=== PATIENT | female | born 1980 | race Caucasian/White ===

== ENCOUNTER 2018-02-02 14:26 | Inpatient (IN) | payer OTHER ==
[2018-02-02 17:07] VITALS: BMI 36.6
--- NOTE | 2018-02-02 18:41 | HP ---
CIWA Score - CIWA Score Nausea/Vomitin Muscle Tremors: 3 Anxiety: 3 Agitation: 2 Paroxysmal Sweats: 3 Orientation: 0-Oriented Tacttile Disturbances: 0-None Auditory Disturbances: 0-None Visual Disturbances: 0-None Headache: 0-None Present CIWA-Ar Total Score: 13 Admission ROS S - HPI Chief Complaint: "I am here for detox from drinking too much wine" History of Present Illness: 37 y/o female here for alcohol detox. This is pt's visit here but she states she had detox 2 yrs ago "[facility] at [facility]" for the same thing. Pt states she drinks wine and believes it is excessive. States she has been drinking for the last 3 days straight. Was drinking vodka in the past, stopped for beer, but now just drinks wine. Last drink was yesterday. Denies any remarkable sober period. Utox + for benzo, pt states she is prescribed ' something' for depression. Hx: juvenile rheumatoid arthritis (for which she is prescribed prednisone and motrin); gastric bypass 2000 psych hx: Depression, Anxiety Denies prior or current SI. Exam Limitations: No Limitations - Ebola screening Have you traveled outside of the country in the last 21 days: No (NN) Have you had contact with anyone from an Ebola affected area: No Have you been sick,other than usual withdrawal symptoms: No Do you have a fever: No - Review of Systems Constitutional: Loss of Appetite, Night Sweats, Unexplained wgt Loss EENT: reports: Blurred Vision (wears glasses) Respiratory: reports: No Symptoms reported Cardiac: reports: Lightheadedness, Palpitations GI: reports: No Symptoms Reported : reports: Burning (sometimes) Musculoskeletal: reports: Joint Pain (upper shoulders, legs from arthritis) Integumentary: reports: No Symptoms Reported Neuro: reports: Headache Endocrine: reports: No Symptoms Reported Hematology: reports: No Symptoms Reported Psychiatric: reports: Orientated x3, Anxious Other Systems: Reviewed and Negative Patient History - Patient Medical History Hx Anemia: No Hx Asthma: No Hx Chronic Obstructive Pulmonary Disease (COPD): No Hx Cancer: No Hx Cardiac Disorders: No Hx Congestive Heart Failure: No Hx Hypertension: No Hx Hypercholesterolemia: No Hx Pacemaker: No HX Cerebrovascular Accident: No Hx Seizures: Yes (alcohol induced, years ago) Hx Dementia: No Hx Diabetes: No Hx Gastrointestinal Disorders: No Hx Liver Disease: No Hx Genitourinary Disorders: No Hx Sexually Transmitted Disorders: No Hx Renal Disease (ESRD): No Hx Thyroid Disease: No Hx Human Immunodeficiency Virus (HIV): No (tested negative at ?last month) Hx Hepatitis C: No Hx Depression: Yes (On Paxil, risperidone) Hx Suicide Attempt: No (Denies past or current) Hx Bipolar Disorder: No Hx Schizophrenia: No - Patient Surgical History Past Surgical History: Yes Hx Neurologic Surgery: No Hx Cataract Extraction: No Hx Cardiac Surgery: No Hx Lung Surgery: No Hx Breast Surgery: No Hx Breast Biopsy: No Hx Abdominal Surgery: Yes (Gastric by pass 2000) Hx Appendectomy: No Hx Cholecystectomy: No Hx Genitourinary Surgery: No Hx Section: No Hx Orthopedic Surgery: No Hx Hysterectomy: No Anesthesia Reaction: No - PPD History Previous Implant?: No Documented Results: Negative w/o proof Implanted On Prior R Admission?: No PPD to be Administered?: Yes - Reproductive History Patient is a Female of Child Bearing Age (11 -55 yrs old): Yes Last Menstrual Period: 02/01/18 Patient : No - Smoking Cessation Smoking history: Current every day smoker Have you smoked in the past 12 months: Yes Aproximately how many cigarettes per day: 10 Initiated information on smoking cessation: Yes 'Breaking Loose' booklet given: 02/02/18 - Substance & Tx. History Hx Alcohol Use: Yes Hx Substance Use: No Substance Use Type: Alcohol Hx Substance Use Treatment: Yes - Substances Abused Alcohol Route: Oral Frequency: 1-2 times per week Amount used: one bottle of wine Age of first use: 16 Date of Last Use: 02/01/18 Family Disease History - Family Disease History Family Disease History: CA: Mother (Depression, breast CA, Fibroid, HTN, obesity ), Other: Father (Alcoholic, drug use), Mother, Sister (Depression, anxiety, htn , obesity) Admission Physical Exam BHS - Vital Signs Vital Signs: Vital Signs - 24 hr 02/02/18 17:02 Temperature 96.4 F L Pulse Rate 108 H Respiratory 18 Rate Blood Pressure 138/79 - Physical General Appearance: Yes: Mild Distress, Anxious HEENTM: Yes: Other (glasses) Respiratory: Yes: Lungs Clear, No Respiratory Distress, No Accessory Muscle Use Neck: Yes: No masses,lesions,Nodules, Trachea in good position Breast: Yes: Breast Exam Deferred Cardiology: Yes: Tachycardia, Other (no distress) Abdominal: Yes: Non Tender, Soft, Distended, Surgical Scar (healed vertical scar ) Genitourinary: Yes: Burning Back: Yes: Normal Inspection Musculoskeletal: Yes: full range of Motion, Gait Steady Extremities: Yes: Normal Capillary Refill, Normal Range of Motion Neurological: Yes: Within Normal Limits, Fully Oriented, Alert Integumentary: Yes: Normal Color Lymphatic: Yes: Within Normal Limits - Diagnostic (1) Alcohol dependence with uncomplicated intoxication Current Visit: Yes Status: Acute (2) Arthritis Current Visit: Yes Status: Acute (3) Gastric bypass status for obesity Current Visit: Yes Status: Acute (4) Depression Current Visit: Yes Status: Acute (5) Anxiety Current Visit: Yes Status: Acute Cleared for Admission [facility] - Detox or Rehab [facility] Level of Care: Medically Managed Detox Regimen/Protocol: Librium [facility] Breath Alcohol Content Breath Alcohol Content: 0 Urine Pregancy Test - Result Urine Test Results: Negative- NO Line Present Urine Drug Screen - Results Drug Screen Negative: No Urine Drug Screen Results: BZO-Benzodiazepines
[2018-02-02] MEDS ORDERED: MAG HYDROX/AL HYDROX/SIMETH 30 ML UNIT-DOSE CUP PO PRN (19:09)
[2018-02-02] MEDS ORDERED: ACETAMINOPHEN 325 MG TABLET (FP) PO PRN (19:09)
[2018-02-02] MEDS ORDERED: chlordiazePOXIDE HCL 25 MG CAPSULE PO PRN (19:09)
[2018-02-02] MEDS ORDERED: guaiFENesin/D-METHORPHAN HB 10 ML UNIT-DOSE CUPS PO PRN (19:09)
[2018-02-02] MEDS ORDERED: MAGNESIUM HYDROX 2400MG/30ML ORAL SUSPENSION 30 ML CUP PO PRN (19:09)
[2018-02-02] MEDS ORDERED: LOPERAMIDE HCL 2 MG CAPSULE PO PRN (19:09)
[2018-02-02] MEDS ORDERED: MAGNESIUM CITRATE 300 ML BOTTLE PO PRN (19:09)
[2018-02-02] MEDS ORDERED: IBUPROFEN 400 MG TABLET (FP) PO PRN (19:09)
[2018-02-02] MEDS ORDERED: MENTHOL/PHENOL 1 EACH UD MM PRN (19:09)
[2018-02-02] MEDS ORDERED: P-EPHED 60MG/TRIPROLIDI 2.5MG TABLET PO PRN (19:09)
[2018-02-02 23:28] LABS: URINE APPEARANCE CLOUDY; URINE COLOR AMBER; URINE GLUCOSE (UA) NEGATIVE (NEGATIVE); URINE KETONE TRACE (NEGATIVE); URINE LEUK ESTERASE NEGATIVE (NEGATIVE); URINE NITRITE NEGATIVE (NEGATIVE)
[2018-02-02 23:34] LABS: URINE PROTEIN 2+ (NEGATIVE)
[2018-02-02 23:37] LABS: CALCIUM OXALATE CRYSTALS FEW /hpf (NONE SEEN); EPI CELLS MODERATE /HPF (FEW); URINE BACTERIA RARE /hpf (NONE SEEN); URINE HYALINE CAST 6 /lpf; URINE MUCUS MANY
[2018-02-03] MEDS: chlordiazePOXIDE HCL 25 MG CAPSULE PO SCH ×5 (01:06→23:01)
[2018-02-03] MEDS: THIAMINE HCL 100 MG TABLET (FP) PO SCH ×2 (01:12→23:01)
[2018-02-03] MEDS: NICOTINE 21 MG/24 HOURS TOPICAL PATCH TD SCH ×2 (01:13→10:10)
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
[2018-02-03] MEDS: PRENATAL VITAMINS W/ FOLIC ACID TABLET (FP) PO SCH (10:10)
[2018-02-03 10:19] LABS: HEMATOCRIT 26.2 % (32.4-45.2); HEMOGLOBIN 7.8 GM/dL (10.7-15.3); MCH 20.2 pg (25.7-33.7); MCHC 29.8 g/dl (32.0-36.0); MEAN CELL VOLUME 67.7 fl (80-96); MEAN PLT VOLUME 8.6 fl (7.5-11.1); PLATELET COUNT 192 K/MM3 (134-434); RBC 3.87 M/mm3 (3.60-5.2); WHITE BLOOD COUNT 6.5 K/mm3 (4.0-10.0)
[2018-02-03 10:40] LABS: ALBUMIN 2.8 g/dl (3.4-5.0); ALK PHOS 58 U/L (45-117); ANION GAP 7 MMOL/L (8-16); BILIRUBIN,TOTAL 0.3 mg/dL (0.2-1); BLOOD UREA NITROGEN 15 mg/dL (7-18); CHLORIDE 111 mmol/L (98-107); CO2 26 mmol/L (21-32); CREATININE 0.7 mg/dL (0.55-1.3); GLUCOSE,RANDOM 74 mg/dL (74-106); POTASSIUM 4.1 mmol/L (3.5-5.1); SGOT/AST 17 U/L (15-37); SGPT/ALT 13 U/L (13-61); SODIUM 143 mmol/L (136-145); TOT PROT 5.4 g/dl (6.4-8.2)
[2018-02-03] MEDS ORDERED: PARoxetine HCL 30 MG TABLET PO SCH (10:45)
[2018-02-03] MEDS: risperiDONE 2 MG TABLET PO SCH (11:00)
[2018-02-03] MEDS: predniSONE 10 MG TABLET (UD) PO SCH (11:00)
[2018-02-03] MEDS: NICOTINE POLACRILEX 2 MG GUM BC PRN ×2 (14:22→18:40)
--- NOTE | 2018-02-03 17:08 | EKG ---
Test Reason : Blood Pressure : / mmHG Vent. Rate : 052 BPM Atrial Rate : 052 BPM P-R Int : 168 ms QRS Dur : 086 ms QT Int : 454 ms P-R-T Axes : 057 051 049 degrees QTc Int : 422 ms SINUS BRADYCARDIA WITH SINUS ARRHYTHMIA OTHERWISE NORMAL ECG NO PREVIOUS ECGS AVAILABLE Confirmed by MD Stalin, Sebastian ([id number]) on 02/03/2018 5:08:30 PM Referred By: Confirmed By:Sebastian Gant MD
--- NOTE | 2018-02-03 17:30 | PN ---
S CIWA - CIWA Score Nausea/Vomitin-Mild Nausea/No Vomiting Muscle Tremors: 3 Anxiety: 3 Agitation: 3 Paroxysmal Sweats: 1-Minimal Palms Moist Orientation: 0-Oriented Tacttile Disturbances: 1-Very Mild Itch/Numbness Auditory Disturbances: 0-None Visual Disturbances: 0-None Headache: 1-Very Mild CIWA-Ar Total Score: 13 BHS Progress Note (SOAP) Subjective: sweat tremor restlessness joints pain from rhumatoid arthritis Objective: 02/03/18 17:28 Vital Signs Temperature 97.9 F 02/03/18 16:52 Pulse Rate 62 02/03/18 16:52 Respiratory Rate 18 02/03/18 16:52 Blood Pressure 137/80 02/03/18 16:52 O2 Sat by Pulse Oximetry (%) Laboratory Last Values WBC 6.5 K/mm3 (4.0-10.0) 02/03/18 07:30 RBC 3.87 M/mm3 (3.60-5.2) 02/03/18 07:30 Hgb 7.8 GM/dL (10.7-15.3) L 02/03/18 07:30 Hct 26.2 % (32.4-45.2) L 02/03/18 07:30 MCV 67.7 fl (80-96) L 02/03/18 07:30 MCH 20.2 pg (25.7-33.7) L 02/03/18 07:30 MCHC 29.8 g/dl (32.0-36.0) L 02/03/18 07:30 RDW 22.0 % (11.6-15.6) H 02/03/18 07:30 Plt Count 192 K/MM3 (134-434) 02/03/18 07:30 MPV 8.6 fl (7.5-11.1) 02/03/18 07:30 Sodium 143 mmol/L (136-145) 02/03/18 07:30 Potassium 4.1 mmol/L (3.5-5.1) 02/03/18 07:30 Chloride 111 mmol/L (98-107) H 02/03/18 07:30 Carbon Dioxide 26 mmol/L (21-32) 02/03/18 07:30 Anion Gap 7 MMOL/L (8-16) L 02/03/18 07:30 BUN 15 mg/dL (7-18) 02/03/18 07:30 Creatinine 0.7 mg/dL (0.55-1.3) 02/03/18 07:30 Creat Clearance w eGFR > 60 (>60) 02/03/18 07:30 Random Glucose 74 mg/dL (74-106) 02/03/18 07:30 Calcium 8.0 mg/dL (8.5-10.1) L 02/03/18 07:30 Total Bilirubin 0.3 mg/dL (0.2-1) 02/03/18 07:30 AST 17 U/L (15-37) 02/03/18 07:30 ALT 13 U/L (13-61) 02/03/18 07:30 Alkaline Phosphatase 58 U/L (45-117) 02/03/18 07:30 Total Protein 5.4 g/dl (6.4-8.2) L 02/03/18 07:30 Albumin 2.8 g/dl (3.4-5.0) L 02/03/18 07:30 Urine Color [place] 02/02/18 21:00 Urine Appearance Cloudy 02/02/18 21:00 Urine pH 5.0 (5.0-8.0) 02/02/18 21:00 Ur Specific [place] 1.035 (1.001-1.035) 02/02/18 21:00 Urine Protein 2+ (NEGATIVE) H 02/02/18 21:00 Urine Glucose (UA) Negative (NEGATIVE) 02/02/18 21:00 Urine Ketones Trace (NEGATIVE) H 02/02/18 21:00 Urine Blood 3+ (NEGATIVE) H 02/02/18 21:00 Urine Nitrite Negative (NEGATIVE) 02/02/18 21:00 Urine Bilirubin 2.0 (<2.0 mg/dL) 02/02/18 21:00 Urine Urobilinogen 2.0 mg/dL (0.2-1.0) H 02/02/18 21:00 Ur Leukocyte Esterase Negative (NEGATIVE) 02/02/18 21:00 Urine WBC (Auto) 21 /hpf (3-5) 02/02/18 21:00 Urine RBC (Auto) 65 /hpf (0-3) 02/02/18 21:00 Ur Epithelial Cells Moderate /HPF (FEW) 02/02/18 21:00 Calcium Oxalate Crystal Few /hpf (NONE SEEN) 02/02/18 21:00 Urine Bacteria Rare /hpf (NONE SEEN) 02/02/18 21:00 Hyaline Casts 6 /lpf 02/02/18 21:00 Urine Mucus Many 02/02/18 21:00 RPR Titer Nonreactive (NONREACTIVE) 02/03/18 07:30 lab noted Assessment: 02/03/18 17:29 withdrawal sx rhumatoid arthritis Plan: continue detox begin prednison
[2018-02-03] MEDS: IBUPROFEN 600 MG TABLET (FP) PO PRN (18:37)
[2018-02-03] MEDS: risperiDONE 1 MG TABLET (FP) PO SCH (23:01)
[2018-02-03] MEDS: MELATONIN 5 MG TABLETS PO PRN (23:02)
[2018-02-04] MEDS: chlordiazePOXIDE HCL 25 MG CAPSULE PO SCH ×3 (04:38→17:06)
[2018-02-04] MEDS: IBUPROFEN 600 MG TABLET (FP) PO PRN ×2 (04:38→22:29)
[2018-02-04] MEDS: PRENATAL VITAMINS W/ FOLIC ACID TABLET (FP) PO SCH (10:06)
[2018-02-04] MEDS: risperiDONE 2 MG TABLET PO SCH (10:06)
[2018-02-04] MEDS: NICOTINE 21 MG/24 HOURS TOPICAL PATCH TD SCH (10:09)
[2018-02-04] MEDS: PAROXETINE HCL 10 MG, PAROXETINE HCL 20 MG PO SCH (10:44)
[2018-02-04] MEDS: predniSONE 10 MG TABLET (UD) PO SCH (10:44)
[2018-02-04] MEDS: NICOTINE POLACRILEX 2 MG GUM BC PRN (13:56)
--- NOTE | 2018-02-04 15:23 | PN ---
[facility] CIWA - CIWA Score Nausea/Vomitin-No Nausea/No Vomiting Muscle Tremors: 2 Anxiety: 4-Mod. Anxious/Guarded Agitation: 1-Slight > Activity Paroxysmal Sweats: No Perspiration Orientation: 0-Oriented Tacttile Disturbances: 0-None Auditory Disturbances: 0-None Visual Disturbances: 0-None Headache: 0-None Present CIWA-Ar Total Score: 7 S Progress Note (SOAP) Subjective: C/o chills. Denies nausea/vomiting. States very anxious. Objective: A&Ox3. Abd S/NT. Mild tremors of hands. Pacing in halls. 02/04/18 15:23 Vital Signs 02/04/18 02/04/18 09:21 13:47 Temperature 96.4 F L 98.1 F Pulse Rate 91 H 71 Respiratory 18 18 Rate Blood Pressure 109/59 L 143/90 Laboratory Tests 02/02/18 02/03/18 02/03/18 21:00 07:30 07:30 WBC 6.5 RBC 3.87 Hgb 7.8 L Hct 26.2 L MCV 67.7 L MCH 20.2 L MCHC 29.8 L RDW 22.0 H Plt Count 192 MPV 8.6 Sodium 143 Potassium 4.1 Chloride 111 H Carbon Dioxide 26 Anion Gap 7 L BUN 15 Creatinine 0.7 Creat Clearance w eGFR > 60 Random Glucose 74 Calcium 8.0 L Total Bilirubin 0.3 AST 17 ALT 13 Alkaline Phosphatase 58 Total Protein 5.4 L Albumin 2.8 L Urine Color [place] Urine Appearance Cloudy Urine pH 5.0 Ur Specific [place] 1.035 Urine Protein 2+ H Urine Glucose (UA) Negative Urine Ketones Trace H Urine Blood 3+ H Urine Nitrite Negative Urine Bilirubin 2.0 Urine Urobilinogen 2.0 H Ur Leukocyte Esterase Negative Urine WBC (Auto) 21 Urine RBC (Auto) 65 Ur Epithelial Cells Moderate Calcium Oxalate Crystal Few Urine Bacteria Rare Hyaline Casts 6 Urine Mucus Many RPR Titer 02/03/18 07:30 WBC RBC Hgb Hct MCV MCH MCHC RDW Plt Count MPV Sodium Potassium Chloride Carbon Dioxide Anion Gap BUN Creatinine Creat Clearance w eGFR Random Glucose Calcium Total Bilirubin AST ALT Alkaline Phosphatase Total Protein Albumin Urine Color Urine Appearance Urine pH Ur Specific [place] Urine Protein Urine Glucose (UA) Urine Ketones Urine Blood Urine Nitrite Urine Bilirubin Urine Urobilinogen Ur Leukocyte Esterase Urine WBC (Auto) Urine RBC (Auto) Ur Epithelial Cells Calcium Oxalate Crystal Urine Bacteria Hyaline Casts Urine Mucus RPR Titer Nonreactive Labs reviewed. Assessment: Withdrawal symptoms. Decreased HGB/HCT. Plan: Continue detox. Receiving iron in [place]. Consider starting FESO4.
[2018-02-04] MEDS: MELATONIN 5 MG TABLETS PO PRN (22:29)
[2018-02-04] MEDS: chlordiazePOXIDE 5 MG CAPSULE PO SCH (22:29)
[2018-02-04] MEDS: THIAMINE HCL 100 MG TABLET (FP) PO SCH (22:30)
[2018-02-04] MEDS: risperiDONE 1 MG TABLET (FP) PO SCH (22:30)
[2018-02-05] MEDS: hydrOXYzine PAMOATE 50 MG CAPSULE (FP) PO PRN (01:10)
[2018-02-05] MEDS: chlordiazePOXIDE 5 MG CAPSULE PO SCH ×3 (05:18→17:53)
[2018-02-05] MEDS: predniSONE 10 MG TABLET (UD) PO SCH (10:19)
[2018-02-05] MEDS: risperiDONE 2 MG TABLET PO SCH (10:19)
[2018-02-05] MEDS: PAROXETINE HCL 10 MG, PAROXETINE HCL 20 MG PO SCH (10:19)
[2018-02-05] MEDS: NICOTINE 21 MG/24 HOURS TOPICAL PATCH TD SCH (10:19)
[2018-02-05] MEDS: PRENATAL VITAMINS W/ FOLIC ACID TABLET (FP) PO SCH (10:19)
[2018-02-05] MEDS ORDERED: BACLOFEN 10 MG TABLET (FP) PO PRN (14:37)
--- NOTE | 2018-02-05 14:39 | PN ---
BHS Progress Note (SOAP) Subjective: feeling better no tremor less sweat no gi distress Objective: 02/05/18 14:38 Vital Signs Temperature 98.3 F 02/05/18 13:16 Pulse Rate 71 02/05/18 13:16 Respiratory Rate 18 02/05/18 13:16 Blood Pressure 127/68 02/05/18 13:16 O2 Sat by Pulse Oximetry (%) Laboratory Last Values WBC 6.5 K/mm3 (4.0-10.0) 02/03/18 07:30 RBC 3.87 M/mm3 (3.60-5.2) 02/03/18 07:30 Hgb 7.8 GM/dL (10.7-15.3) L 02/03/18 07:30 Hct 26.2 % (32.4-45.2) L 02/03/18 07:30 MCV 67.7 fl (80-96) L 02/03/18 07:30 MCH 20.2 pg (25.7-33.7) L 02/03/18 07:30 MCHC 29.8 g/dl (32.0-36.0) L 02/03/18 07:30 RDW 22.0 % (11.6-15.6) H 02/03/18 07:30 Plt Count 192 K/MM3 (134-434) 02/03/18 07:30 MPV 8.6 fl (7.5-11.1) 02/03/18 07:30 Sodium 143 mmol/L (136-145) 02/03/18 07:30 Potassium 4.1 mmol/L (3.5-5.1) 02/03/18 07:30 Chloride 111 mmol/L (98-107) H 02/03/18 07:30 Carbon Dioxide 26 mmol/L (21-32) 02/03/18 07:30 Anion Gap 7 MMOL/L (8-16) L 02/03/18 07:30 BUN 15 mg/dL (7-18) 02/03/18 07:30 Creatinine 0.7 mg/dL (0.55-1.3) 02/03/18 07:30 Creat Clearance w eGFR > 60 (>60) 02/03/18 07:30 Random Glucose 74 mg/dL (74-106) 02/03/18 07:30 Calcium 8.0 mg/dL (8.5-10.1) L 02/03/18 07:30 Total Bilirubin 0.3 mg/dL (0.2-1) 02/03/18 07:30 AST 17 U/L (15-37) 02/03/18 07:30 ALT 13 U/L (13-61) 02/03/18 07:30 Alkaline Phosphatase 58 U/L (45-117) 02/03/18 07:30 Total Protein 5.4 g/dl (6.4-8.2) L 02/03/18 07:30 Albumin 2.8 g/dl (3.4-5.0) L 02/03/18 07:30 Urine Color [place] 02/02/18 21:00 Urine Appearance Cloudy 02/02/18 21:00 Urine pH 5.0 (5.0-8.0) 02/02/18 21:00 Ur Specific [place] 1.035 (1.001-1.035) 02/02/18 21:00 Urine Protein 2+ (NEGATIVE) H 02/02/18 21:00 Urine Glucose (UA) Negative (NEGATIVE) 02/02/18 21:00 Urine Ketones Trace (NEGATIVE) H 02/02/18 21:00 Urine Blood 3+ (NEGATIVE) H 02/02/18 21:00 Urine Nitrite Negative (NEGATIVE) 02/02/18 21:00 Urine Bilirubin 2.0 (<2.0 mg/dL) 02/02/18 21:00 Urine Urobilinogen 2.0 mg/dL (0.2-1.0) H 02/02/18 21:00 Ur Leukocyte Esterase Negative (NEGATIVE) 02/02/18 21:00 Urine WBC (Auto) 21 /hpf (3-5) 02/02/18 21:00 Urine RBC (Auto) 65 /hpf (0-3) 02/02/18 21:00 Ur Epithelial Cells Moderate /HPF (FEW) 02/02/18 21:00 Calcium Oxalate Crystal Few /hpf (NONE SEEN) 02/02/18 21:00 Urine Bacteria Rare /hpf (NONE SEEN) 02/02/18 21:00 Hyaline Casts 6 /lpf 02/02/18 21:00 Urine Mucus Many 02/02/18 21:00 RPR Titer Nonreactive (NONREACTIVE) 02/03/18 07:30 lab noted Assessment: 02/05/18 14:39 mild withdrawal sx Plan: medically supervised detox
[2018-02-05] MEDS: IBUPROFEN 600 MG TABLET (FP) PO PRN ×2 (15:16→22:19)
[2018-02-05] MEDS: DOCUSATE SODIUM 100 MG CAPSULE (FP) PO SCH ×2 (15:37→22:19)
[2018-02-05] MEDS ORDERED: FERROUS SO4 325 MG TABLET (FP) PO SCH (22:00)
[2018-02-05] MEDS: THIAMINE HCL 100 MG TABLET (FP) PO SCH (22:19)
[2018-02-05] MEDS: chlordiazePOXIDE HCL 10 MG CAPSULE PO SCH (22:19)
[2018-02-05] MEDS: risperiDONE 1 MG TABLET (FP) PO SCH (22:19)
[2018-02-05] MEDS: MELATONIN 5 MG TABLETS PO PRN (22:20)
[2018-02-05] MEDS: NICOTINE POLACRILEX 2 MG GUM BC PRN (22:20)
[2018-02-06] MEDS: chlordiazePOXIDE HCL 10 MG CAPSULE PO SCH (05:41)
[2018-02-06] MEDS: DOCUSATE SODIUM 100 MG CAPSULE (FP) PO SCH (05:41)
[2018-02-06] MEDS: hydrOXYzine PAMOATE 50 MG CAPSULE (FP) PO PRN (07:28)
[2018-02-06] MEDS: IBUPROFEN 600 MG TABLET (FP) PO PRN (07:29)
--- NOTE | 2018-02-06 09:01 | DS ---
[facility] Detox Discharge Summary Admission Date: 02/02/18 Discharge Date: 02/06/18 - History Present History: Alcohol Dependence Additional Comments: 37 yeas old female admitted on 02/02/18 for alcohol withdrawal sx completed alcohol detox regimen tolerate well denies alcohol withdrawal sx alert oriented x 3 no acute distress [facility] - Physical Exam Results Vital Signs: Vital Signs Temperature 97.2 F L 02/06/18 08:19 Pulse Rate 63 02/06/18 08:19 Respiratory Rate 18 02/06/18 08:19 Blood Pressure 117/64 02/06/18 08:19 O2 Sat by Pulse Oximetry (%) Pertinent Admission Physical Exam Findings: alcohol withdrawal sx Vital Signs Temperature 97.7 F 02/06/18 09:36 Pulse Rate 72 02/06/18 09:36 Respiratory Rate 18 02/06/18 09:36 Blood Pressure 118/71 02/06/18 09:36 O2 Sat by Pulse Oximetry (%) Laboratory Last Values WBC 6.5 K/mm3 (4.0-10.0) 02/03/18 07:30 RBC 3.87 M/mm3 (3.60-5.2) 02/03/18 07:30 Hgb 7.8 GM/dL (10.7-15.3) L 02/03/18 07:30 Hct 26.2 % (32.4-45.2) L 02/03/18 07:30 MCV 67.7 fl (80-96) L 02/03/18 07:30 MCH 20.2 pg (25.7-33.7) L 02/03/18 07:30 MCHC 29.8 g/dl (32.0-36.0) L 02/03/18 07:30 RDW 22.0 % (11.6-15.6) H 02/03/18 07:30 Plt Count 192 K/MM3 (134-434) 02/03/18 07:30 MPV 8.6 fl (7.5-11.1) 02/03/18 07:30 Sodium 143 mmol/L (136-145) 02/03/18 07:30 Potassium 4.1 mmol/L (3.5-5.1) 02/03/18 07:30 Chloride 111 mmol/L (98-107) H 09/23/18 07:30 Carbon Dioxide 26 mmol/L (21-32) 02/03/18 07:30 Anion Gap 7 MMOL/L (8-16) L 02/03/18 07:30 BUN 15 mg/dL (7-18) 02/03/18 07:30 Creatinine 0.7 mg/dL (0.55-1.3) 02/03/18 07:30 Creat Clearance w eGFR > 60 (>60) 02/03/18 07:30 Random Glucose 74 mg/dL (74-106) 02/03/18 07:30 Calcium 8.0 mg/dL (8.5-10.1) L 02/03/18 07:30 Total Bilirubin 0.3 mg/dL (0.2-1) 02/03/18 07:30 AST 17 U/L (15-37) 02/03/18 07:30 ALT 13 U/L (13-61) 02/03/18 07:30 Alkaline Phosphatase 58 U/L (45-117) 02/03/18 07:30 Total Protein 5.4 g/dl (6.4-8.2) L 02/03/18 07:30 Albumin 2.8 g/dl (3.4-5.0) L 02/03/18 07:30 Urine Color [place] 02/02/18 21:00 Urine Appearance Cloudy 02/02/18 21:00 Urine pH 5.0 (5.0-8.0) 02/02/18 21:00 Ur Specific [place] 1.035 (1.001-1.035) 02/02/18 21:00 Urine Protein 2+ (NEGATIVE) H 02/02/18 21:00 Urine Glucose (UA) Negative (NEGATIVE) 02/02/18 21:00 Urine Ketones Trace (NEGATIVE) H 02/02/18 21:00 Urine Blood 3+ (NEGATIVE) H 02/02/18 21:00 Urine Nitrite Negative (NEGATIVE) 02/02/18 21:00 Urine Bilirubin 2.0 (<2.0 mg/dL) 02/02/18 21:00 Urine Urobilinogen 2.0 mg/dL (0.2-1.0) H 02/02/18 21:00 Ur Leukocyte Esterase Negative (NEGATIVE) 02/02/18 21:00 Urine WBC (Auto) 21 /hpf (3-5) 02/02/18 21:00 Urine RBC (Auto) 65 /hpf (0-3) 02/02/18 21:00 Ur Epithelial Cells Moderate /HPF (FEW) 02/02/18 21:00 Calcium Oxalate Crystal Few /hpf (NONE SEEN) 02/02/18 21:00 Urine Bacteria Rare /hpf (NONE SEEN) 02/02/18 21:00 Hyaline Casts 6 /lpf 02/02/18 21:00 Urine Mucus Many 02/02/18 21:00 RPR Titer Nonreactive (NONREACTIVE) 02/03/18 07:30 lab noted - Treatment Hospital Course: Detox Protocol Followed, Detoxed Safely, Responded well, Discharged Condition Good, Rehab Referral Accepted - Medication Discharge Medications: Ambulatory Orders Paroxetine HCl [Paxil] 30 mg PO DAILY #30 tablet 02/03/18 Risperidone [Risperdal] 1 mg PO HS #30 tablet 02/03/18 Risperidone [Risperdal] 4 mg PO DAILY #30 tablet 02/03/18 - Diagnosis (1) Alcohol dependence with uncomplicated intoxication Status: Acute (2) Nicotine addiction Status: Acute Qualifiers: Nicotine product type: cigarettes Substance use status: in withdrawal Qualified Code(s): F17.213 - Nicotine dependence, cigarettes, with withdrawal (3) Gastric bypass status for obesity Status: Suspected - AMA Did Patient Leave Against Medical Advice: No
[2018-02-06 09:36] VITALS: BP 118/71; PULSE 72; TEMP 97.7
== END 2018-02-06 09:36 | disposition home or self-care (01) | DRG 897 ==
LOC: YASAS 14:26 → Y6N 21:18
PROC: HZ2ZZZZ Detoxification Services for Substance Abuse Treatment (ICD-10-PCS; principal; 2018-02-02)
DX: F10.230 Alcohol dependence with withdrawal, uncomplicated (principal); F33.9 Major depressive disorder, recurrent, unspecified; F17.213 Nicotine dependence, cigarettes, with withdrawal; F10.24 Alcohol dependence with alcohol-induced mood disorder; F41.9 Anxiety disorder, unspecified; F32.9 Major depressive disorder, single episode, unspecified; Z98.84 Bariatric surgery status; Z86.69 Personal history of other diseases of the nervous system and sense organs
CPT/HCPCS: 36415; 80053; 81003; 81015; 85027; 86593; 93005; 93010; J0475; J2794